=== PATIENT | female | born 1960 | race Caucasian/White ===

== ENCOUNTER → 2018-04-03 | Outpatient (CLI) | payer OTHER ==
[~2018-04-03] MED LIST: ATOR-22 PO; BUPR-79 PO; CELE100C PO; GABA-113 PO; GLC/500 PO; LISI-729 PO; METH5TAB63; SERT-234 PO; TIZA2CAP PO; TRAZ100T29 PO
== END | disposition home or self-care (01) ==
LOC: C.LAB1850 16:54
PROVIDERS: ATTEND Internal Medicine Endocrinology, Diabetes & Metabolism
DX: E05.00 Thyrotoxicosis with diffuse goiter without thyrotoxic crisis or storm (principal)